=== PATIENT | female | born 1955 | race Two or more races ===

== ENCOUNTER 2018-06-12 05:43 | Day surgery (SDC) | payer BC ==
[2018-06-12] MEDS ORDERED: methylPREDNISolone ACETATE 80 MG/ML VIAL ONE (08:12)
[2018-06-12] MEDS ORDERED: LIDOCAINE HCL/PF 1% 30 ML SDV ONE (08:12)
[2018-06-12] MEDS ORDERED: HYDROCODONE/APAP 5/325MG 1 EACH TABLET ONE ×2 (08:46→08:55)
== END 2018-06-12 09:50 | disposition home or self-care (01) ==
LOC: DS 05:43
PROVIDERS: ATTEND Specialist
DX: S83.281A Other tear of lateral meniscus, current injury, right knee, initial encounter (principal); S83.241A Other tear of medial meniscus, current injury, right knee, initial encounter; M94.261 Chondromalacia, right knee; X58.XXXA Exposure to other specified factors, initial encounter; Y93.89 Activity, other specified; Y92.89 Other specified places as the place of occurrence of the external cause; Y99.8 Other external cause status; E11.65 Type 2 diabetes mellitus with hyperglycemia; I11.0 Hypertensive heart disease with heart failure; I50.9 Heart failure, unspecified; G47.33 Obstructive sleep apnea (adult) (pediatric); E66.09 Other obesity due to excess calories; Z79.899 Other long term (current) drug therapy; Z98.890 Other specified postprocedural states
CPT/HCPCS: 29880; 82962; J1040; J3490; J7030; 88304-TC; 88311-TC; A4217; A6253; J0690; J1100; J2405; J2704